=== PATIENT | male | born 2000 | race African-American/Black ===

== ENCOUNTER 2024-12-30 12:38 | Emergency (ER) | payer MEDICAID ==
[~2024-12-30] VITALS: Ht 177.8 cm; Wt 84.8 kg
[2024-12-30] MEDS ORDERED: METOCLOPRAMIDE HCL 10 MG/2 ML VIAL ONE (13:24)
[2024-12-30 13:34] LABS: BASOPHILS # (AUTO) 0.1 K/UL (0.0-0.2); BASOPHILS % (AUTO) 1.5 % (0.0-2.0); EOSINOPHILS # (AUTO) 0.2 K/uL (0.0-0.7); EOSINOPHILS % (AUTO) 3.4 % (0.0-7.0); HEMOGLOBIN 15.7 g/dL (12.5-16.3); LYMPHOCYTES # (AUTO) 2.2 K/uL (0.8-4.8); LYMPHOCYTES % (AUTO) 34.5 % (20.5-51.5); MEAN CORPUSCULAR HEMOGLOBIN 30.1 uug (23.8-33.4); MEAN CORPUSCULAR HGB CONC 34 g/dL (32.5-36.3); MEAN CORPUSCULAR VOLUME 88.7 fL (73.0-96.2); MONOCYTES # (AUTO) 0.6 K/uL (0.1-1.30); MONOCYTES % (AUTO) 9.1 % (0.0-11.0); NEUTROPHILS # (AUTO) 3.3 K/uL (1.8-8.9); NEUTROPHILS % (AUTO) 51.5 % (38.5-71.5); PLATELET COUNT (AUTO) 247 K/uL (152-348); RED BLOOD CELL COUNT(AUTO) 5.19 MIL/uL (4.06-5.63); RED CELL DISTRIBUTION WIDTH 13.6 % (12.1-16.2); WHITE BLOOD COUNT (AUTO) 6.5 K/uL (3.6-10.2)
[2024-12-30] MEDS: METOCLOPRAMIDE HCL 10 MG/2 ML VIAL IV ONE (13:34)
[2024-12-30] MEDS: IV NS 1000 ML 1,000 ML IV ONE (13:34)
[2024-12-30 13:38] LABS: DIFFERENTIAL COMMENT 1
[2024-12-30 13:43] LABS: CALCIUM 9.4 mg/dL (8.5-10.1)
[2024-12-30] MEDS ORDERED: SWABABLE VALVE TRANSFER SET EA MC ONE (14:03)
[2024-12-30] MEDS ORDERED: IV NORMAL SALINE 250 ML IV ONE (14:03)
[2024-12-30] MEDS ORDERED: IOHEXOL 350 100 ML INFUS..BTL ONE (14:03)
[2024-12-30] MEDS ORDERED: KETO10TA2 PO (14:37)
[2024-12-30] MEDS ORDERED: METO-295 PO (14:37)
[2024-12-30 15:10] VITALS: BP 113/51; TEMP 97.9; O2SAT 98
== END 2024-12-30 15:11 | disposition home or self-care (01) ==
LOC: ER 12:47
DX: G43.909 Migraine, unspecified, not intractable, without status migrainosus (principal); M54.2 Cervicalgia
CPT/HCPCS: 99285; 70450; 96374; 96361; 80048; 85025; 36415; 70496; 70498; J2765; Q9967; J7040; A4606; A4663